=== PATIENT | female | born 1965 | race African-American/Black ===

== ENCOUNTER 2018-12-01 13:35 | Emergency (ER) | payer MEDICAID ==
[~2018-12-01] VITALS: Ht 170.2 cm; Wt 127.5 kg
[2018-12-01] MEDS ORDERED: IBUPROFEN 600MG TABLET PO STA (18:23)
[2018-12-01 19:22] VITALS: BP 171/84
== END 2018-12-01 19:31 | disposition home or self-care (01) ==
LOC: ER 14:00
DX: S80.02XA Contusion of left knee, initial encounter (principal); S80.01XA Contusion of right knee, initial encounter; W18.39XA Other fall on same level, initial encounter; Y93.89 Activity, other specified; Y92.89 Other specified places as the place of occurrence of the external cause; Y99.8 Other external cause status; Z98.51 Tubal ligation status; Z98.890 Other specified postprocedural states
CPT/HCPCS: 73560; 99283